=== PATIENT | female | born 1980 | race Caucasian/White ===

== ENCOUNTER 2017-08-25 05:06 | Emergency (ER) | payer OTHER ==
[~2017-08-25] VITALS: Ht 170.2 cm; Wt 74.8 kg
[~2017-08-25 05:06] MED LIST: PROZAC10 MG ORAL; RANITIDINE HCL150 MG ORAL
[2017-08-25] MEDS ORDERED: SYNTHROID50 MCG ORAL (05:18)
[2017-08-25 05:25] VITALS: BP 126/85
[2017-08-25 06:32] VITALS: BP 126/85
--- NOTE | 2017-08-25 11:00 | Diagnostic Imaging Report ---
Indication: Pain in right thumb, status post fall backwards earlier while sitting in a chair Technique: 3 views right hand Comparison: none Findings: No acute fractures. No dislocations. The joint spaces are preserved Impression: Negative
--- NOTE | 2017-08-25 21:40 | Emergency Room Report ---
History of Present Illness General Chief Complaint: Lower Back Pain or Injury Source: Patient Present Illness HPI 37-year-old female presents ED for evaluation. 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 States that tonight she was sitting in her chair and the chair broke and she fell backwards landing on her right hand. Notes pain to her right thumb. Dull , 5 out of 10, nonradiating. Denies any other injuries. No other aggravating relieving factors. Denies any other associated symptoms Allergies: Coded Allergies: No Known Allergies (Unverified , 09/24/15) Patient History Past Medical History: GERD Past Surgical History: none Pertinent Family History: none Social History: Denies: smoking, alcohol use, drug use Last Menstrual Period: 08/13/17 Now: No : 1 Para: 0 Immunizations: UTD Reviewed Nursing Documentation: PMH: Agreed, PSxH: Agreed Nursing Documentation-PMH Hx Cardiac Problems: No - hypothyroidism Hx Gastrointestinal Problems: Yes - gerd Hx Neurological Problems: Yes - depression Review of Systems All Other Systems: negative except mentioned in HPI Physical Exam Vital Signs Date Time Temp Pulse Resp B/P (MAP) Pulse Ox O2 Delivery O2 Flow Rate FiO2 08/25/17 05:11 97.7 80 16 126/85 97 Room Air 97.7 Sp02 EP Interpretation: reviewed, normal General Appearance: no apparent distress, alert, GCS 15, non-toxic Head: normocephalic Eyes: bilateral eye normal inspection, bilateral eye PERRL ENT: normal ENT inspection Neck: normal inspection Respiratory: normal inspection Cardiovascular #1: normal inspection Gastrointestinal: normal inspection Rectal: deferred Genitourinary: no CVA tenderness Musculoskeletal: tender - R thumb. + snuffbox tenderness Neurologic: alert, oriented x3, responsive, motor strength/tone normal, sensory intact, speech normal Psychiatric: normal inspection Skin: normal inspection Lymphatic: normal inspection Procedures Splinting Splinting : Consent: Verbal Splint: thumb spica Pre-Proc Neuro Vasc Exam: normal Post-Proc Neuro Vasc Exam: normal Patient Tolerated: Well Complications: None Medical Decision Making Diagnostic Impression: Primary Impression: Hand pain Qualified Codes: M79.641 - Pain in right hand ER Course Hospital Course 37-year-old F presents to ED complaining of R hand pain s/p fall from chair Differential diagnoses include: Fracture, dislocation, sprain, contusion Clinical course Patient placed on stretcher. After initial history and physical, I ordered xrays of R hand. patient declined pain meds Xrays prelim read shows no acute fracture/dislocation. given snuffbox tenderness , i placed i thumb spica Diagnosis - hand pain Stable and discharged to home. apply ice, keep elevated. weight bear as tolerated. Followup with PMD. Return to ED if symptoms recur or worsen Other X-Ray Diagnostic Results Other X-Ray Diagnostic Results : X-Ray ordered: R hand # of Views/Limited Vs Complete: 3 View Indication: Pain EP Interpretation: Yes Interpretation: no dislocation, no soft tissue swelling, no fractures Impression: No acute disease Electronically Signed by: Electronically signed by Edilberto Beckwith MD Last Vital Signs Date Time Temp Pulse Resp B/P (MAP) Pulse Ox O2 Delivery O2 Flow Rate FiO2 08/25/17 06:32 97.7 80 16 126/85 97 Room Air 97.7 Status: improved Disposition: HOME, SELF-CARE Condition: Stable Departure Forms: Return to Work Return to Work Date: Aug 25, 2017 Work Restrictions: No Heavy Lifting Patient Instructions: Hand Contusion EDILBERTO BECKWITH M.D. Aug 25, 2017 21:40
== END 2017-08-25 06:32 | disposition home or self-care (01) ==
LOC: EMR 05:41
DX: M79.641 Pain in right hand (principal); W07.XXXA Fall from chair, initial encounter; Y92.239 Unspecified place in hospital as the place of occurrence of the external cause; Y99.0 Civilian activity done for income or pay; K21.9 Gastro-esophageal reflux disease without esophagitis; F32.9 Major depressive disorder, single episode, unspecified
CPT/HCPCS: 99283